=== PATIENT | female | born 1955 | race Caucasian/White ===

== ENCOUNTER → 2018-01-31 | Outpatient (CLI) | payer OTHER ==
[~2018-01-31] MED LIST: ABAT250V; LOSA50; Norco 5-325 Ta1 EACH PO; SIMV40
== END | disposition home or self-care (01) ==
LOC: LAB SHORT 10:19 → LAB EV 10:19
DX: R21 Rash and other nonspecific skin eruption (principal)
CPT/HCPCS: 87070; 87205

== ENCOUNTER → 2020-03-07 | Outpatient (CLI) | payer OTHER | END | disposition home or self-care (01) | LOC: LAB SHORT 12:22 → PLD 12:22 | DX: N90.4 Leukoplakia of vulva (principal); L30.8 Other specified dermatitis | CPT/HCPCS: 88305; 88312 ==

== ENCOUNTER → 2021-08-24 | Outpatient (CLI) | payer OTHER ==
[~2021-08-24] MED LIST changes: +ACYC200 PO; +ALBU90OI INH; +ASPIR 8181 M1 PO; +Crestor40 MG PO; +FAMO20 PO; +Flonase 0.05% N16 GM; +GABA300 PO; +HYDROCHLOROTH12.5 MG PO; -LOSA50; +LOSA50 PO; +METO25ER PO; +Methocarbamol500 MG PO; +Naproxen375 MG PO; +TRAZ50 PO; +VENL75ER PO
== END | disposition home or self-care (01) ==
LOC: LAB SHORT 09:45
DX: R30.9 Painful micturition, unspecified (principal)
CPT/HCPCS: 87086

== ENCOUNTER 2023-07-21 06:11 | Day surgery (SDC) | payer OTHER ==
[~2023-07-21] VITALS: Ht 152.4 cm; Wt 73.3 kg
[~2023-07-21 06:11] MED LIST changes: +Acetaminophen650 M1 PO; -GABA300 PO; +GABA300T24 PO; +Lopressor 50 mg50 MG PO; -METO25ER PO; +SYMBICORT 160-4.6 GM; +Voltaren100 GM
--- NOTE | 2023-07-21 08:23 | NUR ---
07/21/23 0823 Silva Berry PT ON A TMAX BED WITH SPIDER ATTACHED TO RIGHT SIDE, WEDGE PLACED UNDER HER LEGS, A GEL PAD IS UNDER HER COCCYX'S AREA, LEFT ARM IS SECURED TO ARMBOARD, TWO SAFETY STRAPS ARE ON HER THIGH AREAS, HEAD IS SECURED WITH FOAM HEADREST.
--- NOTE | 2023-07-21 09:54 | NUR ---
07/21/23 [address] MTZ, PT PLACED ON 3L OF SUPPLEMENTAL VIA NC
[2023-07-21 10:13] VITALS: BP 137/70
--- NOTE | 2023-07-21 11:21 | NUR ---
07/21/23 1121 Ondina Fischer PT DEMONSTRATING USE OF INCENTIVE SPIROMETER. SUPPLEMENTAL O2 TURNED DOWN TO 2L/MINUTE. MONITORING O2 TO ENSURE THAT IT STAYS OVER 92%.
== END 2023-07-21 13:00 | disposition home or self-care (01) ==
LOC: ORSCSDS 06:11
PROVIDERS: Orthopaedic Surgery
PROC: 0RRJ0JZ Replacement of Right Shoulder Joint with Synthetic Substitute, Open Approach (ICD-10-PCS; principal; 2023-07-21 07:30)
PROC: 0LS30ZZ Reposition Right Upper Arm Tendon, Open Approach (ICD-10-PCS; principal; 2023-07-21 07:30)
PROC: 0RHJ04Z Insertion of Internal Fixation Device into Right Shoulder Joint, Open Approach (ICD-10-PCS; principal; 2023-07-21 07:30)
DX: M19.011 Primary osteoarthritis, right shoulder (principal); I10 Essential (primary) hypertension; E78.5 Hyperlipidemia, unspecified; K21.9 Gastro-esophageal reflux disease without esophagitis; F32.A Depression, unspecified; G47.33 Obstructive sleep apnea (adult) (pediatric); J45.909 Unspecified asthma, uncomplicated; Z79.82 Long term (current) use of aspirin; Z79.899 Other long term (current) drug therapy
CPT/HCPCS: 73030; A9270; C1713; C1776; J0171; J0696; J1100; J2250; J2371; J2405; J2704; J2795; J3010; J3370; J7120